=== PATIENT | female | born 1975 | race Caucasian/White ===

== ENCOUNTER 2017-12-07 12:43 | Day surgery (SDC) | payer MEDICAID, SELFPAY ==
[2017-12-07 13:07] VITALS: BP 137/86; PULSE 84; RESP 20; TEMP 36.8; O2SAT 100; BMI 50.5
[2017-12-07] MEDS: Ketorolac 60 MG/2 ML Vial IM (13:15)
[2017-12-07] MEDS: Gabapentin 400 MG Capsule PO (13:15)
[2017-12-07] MEDS: Acetaminophen 500 MG Tablet 1000 MG PO (13:15)
[2017-12-07 13:31] LABS: Pregnancy, Serum, hCG Quali. NEGATIVE Negative (0-9 Nonpreg)
--- NOTE | 2017-12-07 14:27 | PCM.DC.D&C ---
Discharge Diet: No Restrictions Discharge Activity: Return to Normal Activity, May Shower, May Take a Tub Bath - in 2 weeks. Return to work on:: 12/11/17 May resume sexual activity in: 2 weeks Call your doctor if your incision/area has: Continuous Slow Oozing, Sudden Increased Bleeding, Foul Smelling Discharge Call your doctor if you observe: Fever of 101 or Higher, Using more than one pad per hour - for 2 hrs in a row, Uncontrolled pain Allergies/Adverse Reactions: Allergies No Known Allergies Allergy (Verified 11/30/17 11:15) Medications to take at Discharge No Known/Unobtainable [No Known Home Medications] 06/14/14 Primary Care Physician: Care Physician,No Primary [Primary Care Provider] - Please Follow Up With: Rashmi Deshpande MD - [phone] When: 4 weeks or as needed
--- NOTE | 2017-12-07 14:50 | OP.PCM_ITS ---
Report of Operation Date of Procedure: 12/07/17 Pre-Operative Diagnosis: menorrhagia Post-Operative Diagnosis: Same Description of Surgical Findings:: Normal-appearing cervix, vagina and endometrial cavity. place change roof bolter: Jo Castro student Type of Anesthesia:: MAC/Supplemental/Local Anesthesiologist: Santino Ha Special Medications: none Specimen's removed: None Drains: None Estimated Blood Loss (mL): 10 cc Fluids Replaced: 750 cc of LR Description of Procedure: The patient was taken to the OR where she was prepped and draped in dorsal lithotomy position. The weighted speculum was placed in the vagina and the anterior lip of the cervix was grasped with a single-tooth tenaculum. A paracervical block was administered with 1% lidocaine with 1-100,000 epinephrine solution. The cervix was dilated serially with Hegar dilators. The 5mm hysteroscope was placed into the uterine cavity and the above findings were noted. Bilateral tubal ostia were identified. The uterus sounded to 11 cm and the cervical length was 5 cm. The endometrial cavity length was 6 cm. The hysteroscope was removed. The Karma device was set to 6cm. The instrument was then seated into the endometrial cavity and the indicator was in the green. The cervical seal balloon was inflated and the uterine integrity test was passed. The ablation procedure was initiated and completed without interruption. During the ablation procedure gentle traction was held on the tenaculum and the Karma device was held up against the uterine fundus. When the ablation procedure was completed the Karma was removed. The tenaculum was removed and the tenaculum site was noted to be hemostatic. All sponge and needle counts were correct. A vaginal sweep was performed by me. The patient was awakened and taken to the recovery room in stable condition. Hysteroscopic ins: 100 cc normal saline Hysteroscopic outs: 75 cc Findings: Endometrial cavity: normal, no fibroids or polyps noted Cervix: normal Vagina: normal Grafts/Implants Used: None - Complications None - Admit VTE Documentation VTE Present on Admission: No VTE Mechan Device Prophylaxis: None VTE Pharm Prophylaxis ordered?: No Reason prophylaxis not ordered:: Procedure Not Indicated
[2017-12-07 14:51] VITALS: BP 137/86; BP 97/64; PULSE 106; RESP 18; TEMP 36.3; O2SAT 95
[2017-12-07 14:55] VITALS: BP 117/65; BP 137/86; PULSE 94; RESP 18; O2SAT 96
[2017-12-07 15:00] VITALS: BP 120/67; BP 137/86; PULSE 89; RESP 18; O2SAT 96
[2017-12-07 15:05] VITALS: BP 125/71; BP 137/86; PULSE 91; RESP 18; TEMP 36.3; O2SAT 97
[2017-12-07 15:50] VITALS: BP 137/86
== END 2017-12-07 16:04 | disposition home or self-care (01) ==
LOC: SDC 12:44 → AC 12:46
PROVIDERS: Visit Provider Obstetrics & Gynecology
PROC: 0U5B8ZZ Destruction of Endometrium, Via Natural or Artificial Opening Endoscopic (ICD-10-PCS; CPT 58558; principal; 2017-12-07 14:15)
DX: N92.0 Excessive and frequent menstruation with regular cycle (principal)
CPT/HCPCS: 00952; 58563; 36415; 84703; J7120; J2405

== ENCOUNTER 2024-08-22 12:00 | Outpatient (RCR) | payer BC, SELFPAY | END 2024-08-23 23:59 | LOC: NS 12:00 | PROVIDERS: PCP Internal Medicine; Referring Provider Internal Medicine; Visit Provider Internal Medicine | DX: Z71.3 Dietary counseling and surveillance (principal); E66.9 Obesity, unspecified; E11.9 Type 2 diabetes mellitus without complications | CPT/HCPCS: 97802; 97803 ==

== ENCOUNTER 2024-09-05 08:25 | Outpatient (RCR) | payer BC, SELFPAY | END 2024-09-23 23:59 | LOC: NS 08:25 | PROVIDERS: PCP Internal Medicine; Referring Provider Internal Medicine; Visit Provider Internal Medicine | DX: Z71.3 Dietary counseling and surveillance (principal); E66.9 Obesity, unspecified; E11.9 Type 2 diabetes mellitus without complications; Z68.43 Body mass index [BMI] 50.0-59.9, adult | CPT/HCPCS: 97803 ==